=== PATIENT | male | born 1955 | race Caucasian/White ===

== ENCOUNTER 2022-03-02 06:57 | Observation (INO) | payer MEDICARE ==
[~2022-03-02] VITALS: Ht 177.8 cm; Wt 97.1 kg
[2022-03-02 07:31] LABS: HEMOGLOBIN 8.3 gm/dl (14.0-17.5); RED BLOOD COUNT 4.39 M/UL (4.20-5.50); WHITE BLOOD COUNT 9.2 K/UL (4.5-11.0)
[2022-03-02 08:09] LABS: BUN/CREATININE RATIO 14 (0-10)
[2022-03-02] MEDS ORDERED: MULTIVITAMIN1 EACH PO (14:10)
[2022-03-02] MEDS ORDERED: LISINOPRIL5 MG PO (14:10)
[2022-03-02] MEDS ORDERED: ESCITALOPRAM OXA5 MG PO (14:10)
[2022-03-03 01:47] LABS: HEMOGLOBIN 7.5 gm/dl (14.0-17.5); WHITE BLOOD COUNT 7.3 K/UL (4.5-11.0)
[2022-03-03 01:54] LABS: RED BLOOD COUNT 3.87 M/UL (4.20-5.50)
[2022-03-03 02:29] LABS: BUN/CREATININE RATIO 15 (0-10)
[2022-03-03] MEDS ORDERED: LEVOFLOXACIN500 MG PO (09:10)
[2022-03-03] MEDS ORDERED: FERROUS SULFAT325 M2 PO (09:10)
== END 2022-03-03 14:36 | disposition home or self-care (01) ==
LOC: ER1 06:57 → M/S 12:27 → CDU 12:27 → M/S 12:27
PROVIDERS: Nurse Practitioner; Physician Assistant; ADMIT Internal Medicine
DX: K50.00 Crohn's disease of small intestine without complications (principal); D50.9 Iron deficiency anemia, unspecified; N40.2 Nodular prostate without lower urinary tract symptoms; I10 Essential (primary) hypertension; F32.A Depression, unspecified; Z20.822 Contact with and (suspected) exposure to COVID-19; Z79.899 Other long term (current) drug therapy
CPT/HCPCS: 0240U; 36415; 71045; 80053; 81001; 82550; 82553; 82728; 83540; 83550; 83605; 83690; 84153; 84484; 85025; 93005; 96374; 96375; 96376; 99285; C9113; G0378; J1756; J1885; J2270; J2405; J2920; J7030; Q9967